=== PATIENT | male | born 1990 | race African-American/Black ===

== ENCOUNTER 2018-02-21 17:36 | Emergency (ER) | payer OTHER ==
[~2018-02-21] VITALS: Ht 175.3 cm; Wt 81.7 kg
--- NOTE | ~2018-02-21 | EKG ---
[place] [address] [facility] [place] [address] ELECTROCARDIOGRAM REPORT Name: GONZÁLEZ CAVANAUGH Room #: DEP WHIT Goldman#: [id number] Admission: 02/21/18 Attend Phys: Discharge: 02/21/18 Date of : [birth year] Report #: [id number] THIS REPORT FOR: //name// [facility] ED Test Date: 2018-02-21 Test Time: 18:01:15 Pat Name: GONZÁLEZ CAVANAUGH Department: Room: Gender: [employer] Supervisor: [facility] : 1990 Requested By: Malia Sun Order Number: [id number] MD: Ronal Curtis Measurements Intervals [place] Rate: 53 P: 26 MD: 146 QRS: 53 QRSD: 104 T: 31 QT: 386 QTc: 363 Interpretive Statements Sinus bradycardia ST elev, probable normal early repol pattern No previous ECG available for comparison Electronically Signed On 02-22-2018 16:36:56 CDT by Ronal Curtis [email or web address] <ELECTRONICALLY SIGNED> By: Ronal Curtis MD, MERGED WITH [facility] 02/22/18 1636 1801 1801 Ronal Curtis MD, FACC /EPI
[2018-02-21 18:12] LABS: URINE BILIRUBIN NEGATIVE (Negative); URINE BLOOD NEGATIVE (Negative); URINE CLARITY CLEAR; URINE COLOR YELLOW; URINE GLUCOSE-RANDOM* NEGATIVE (Negative); URINE KETONES NEGATIVE (Negative); URINE LEUKOCYTES NEGATIVE (Negative); URINE NITRITE NEGATIVE (Negative); URINE PROTEIN (DIPSTICK) NEGATIVE (Negative); URINE SPECIFIC GRAVITY 1.015 (1.005-1.035); URINE UROBILINOGEN 0.2 E.U./dl (0.2-1.0)
[2018-02-21 18:19] LABS: ABSOLUTE NEUTROPHILS 1.9 thou/uL (1.4-8.2); BASOPHILS 0.9 % (0.0-2.0); EOSINOPHILS 0.8 % (0.0-3.0); HEMATOCRIT 44.2 % (42.0-52.0); HEMOGLOBIN 15.2 gm/dL (14.0-18.0); LYMPHOCYTES 39.4 % (24.0-44.0); MCH 29.8 pg (26.0-34.0); MCHC 34.3 g/dL (28.0-37.0); MCV 86.7 fL (80.0-100.0); MONOCYTES 10.9 % (1.0-8.0); PLATELET COUNT 213 thou/uL (150-400); RBC 5.09 mil/uL (4.50-6.00); RDW 14.2 % (10.5-14.5); WBC 4.1 thou/uL (4.0-11.0)
[2018-02-21 18:30] LABS: CALCIUM 8.8 mg/dL (8.5-10.1); CREATININE 1.5 mg/dL (0.7-1.3)
[2018-02-21 18:36] LABS: ALBUMIN 4.1 g/dL (3.4-5.0); TOTAL BILIRUBIN 0.3 mg/dL (<0.1-1.0); TOTAL PROTEIN 7.5 g/dL (6.4-8.2)
[2018-02-21] MEDS ORDERED: PEPCID20 MG PO (18:47)
[2018-02-21] MEDS ORDERED: PHENERGAN 25 MG25 M1 PO (18:47)
[2018-02-21 19:07] VITALS: BP 134/69
== END 2018-02-21 19:08 | disposition home or self-care (01) ==
LOC: ER 17:36
PROVIDERS: Physician Assistant
DX: R10.13 Epigastric pain (principal); R11.2 Nausea with vomiting, unspecified; R79.89 Other specified abnormal findings of blood chemistry

== ENCOUNTER 2018-08-07 01:31 | Emergency (ER) | payer OTHER ==
[~2018-08-07] VITALS: Ht 175.3 cm; Wt 87.1 kg
[~2018-08-07 01:31] MED LIST: PEPCID20 MG PO; PHENERGAN 25 MG25 M1 PO
[2018-08-07 01:50] VITALS: BP 122/79
[2018-08-07] MEDS ORDERED: FLEXERIL PO (01:56)
[2018-08-07] MEDS ORDERED: IBUPROFEN 600600 M1 PO (01:56)
== END 2018-08-07 02:11 | disposition home or self-care (01) ==
LOC: ER 01:31
DX: M54.5 Low back pain (principal)

== ENCOUNTER 2018-10-26 08:35 | Emergency (ER) | payer OTHER ==
[~2018-10-26] VITALS: Ht 175.3 cm; Wt 81.7 kg
[~2018-10-26 08:35] MED LIST changes: +FLEXERIL PO; +IBUPROFEN 600600 M1 PO
[2018-10-26] MEDS ORDERED: NAPROSYN500 MG PO (09:06)
[2018-10-26] MEDS ORDERED: NORFLEX100 MG PO (09:06)
[2018-10-26 09:33] VITALS: BP 112/44
== END 2018-10-26 09:34 | disposition home or self-care (01) ==
LOC: ER 08:35
DX: M43.6 Torticollis (principal)

== ENCOUNTER 2018-12-06 14:32 | Emergency (ER) | payer OTHER ==
[~2018-12-06] VITALS: Ht 175.3 cm; Wt 81.7 kg
[~2018-12-06 14:32] MED LIST changes: +NAPROSYN500 MG PO; +NORFLEX100 MG PO
[2018-12-06 15:49] VITALS: BP 121/61
[2018-12-06] MEDS ORDERED: PREDNISONE 20 M20 M1 PO (15:58)
[2018-12-06] MEDS ORDERED: CEPACOL SORE T1 EAC7 PO (15:58)
== END 2018-12-06 18:54 | disposition home or self-care (01) ==
LOC: ER 14:32
DX: J02.8 Acute pharyngitis due to other specified organisms (principal); B96.89 Other specified bacterial agents as the cause of diseases classified elsewhere

== ENCOUNTER 2019-01-25 23:19 | Emergency (ER) | payer OTHER ==
[~2019-01-25] VITALS: Ht 152.4 cm; Wt 90.7 kg
[~2019-01-25 23:19] MED LIST changes: +CEPACOL SORE T1 EAC7 PO; +PREDNISONE 20 M20 M1 PO
[2019-01-25] MEDS ORDERED: IBUPROFEN 400400 M2 PO (23:57)
[2019-01-26 00:33] VITALS: BP 114/62
== END 2019-01-26 00:35 | disposition home or self-care (01) ==
LOC: ER 23:19
DX: M76.32 Iliotibial band syndrome, left leg (principal)